=== PATIENT | male | born 1995 | race Two or more races ===

== ENCOUNTER 2020-02-01 18:04 | Emergency (ER) | payer SELFPAY ==
[~2020-02-01] VITALS: Ht 165.1 cm; Wt 95.3 kg
[2020-02-01 18:41] VITALS: BP 139/71
[2020-02-01] MEDS ORDERED: ACETAMINOPHEN 325 MG TAB PO ONE (19:45)
== END 2020-02-01 21:20 | disposition home or self-care (01) ==
LOC: ER 18:04
DX: U07.1 COVID-19 (principal); J06.9 Acute upper respiratory infection, unspecified
CPT/HCPCS: 71045; 99284; U0003